=== PATIENT | male | born 2000 | race Caucasian/White ===

== ENCOUNTER 2025-02-03 18:10 | Inpatient (IN) | payer OTHER ==
[~2025-02-03] VITALS: Ht 172.7 cm; Wt 98.0 kg
[2025-02-03 18:43] LABS: COVID AG,FIA SOURCE NASAL SWAB
[2025-02-03 18:47] LABS: PLATELET COUNT (AUTO) 314 K/uL (150-450); RED BLOOD CELL COUNT(AUTO) 5.49 MIL/uL (4.50-5.90); RED CELL DISTRIBUTION WIDTH 12.9 % (11.5-14.5); WHITE BLOOD COUNT (AUTO) 9.6 K/uL (4.5-11.0)
[2025-02-03 18:50] LABS: CALCIUM, TOTAL 8.5 mg/dL (8.8-10.5); CREATININE 1.01 mg/dL (0.60-1.30); GLOMERULAR FILTR. RATE CALC > 60 mL/min (>60); GLUCOSE,RANDOM 114 mg/dL (70-110); SODIUM SERUM 139 mmol/L (136-145); UREA NITROGEN, BLOOD 14 mg/dL (7-18)
[2025-02-03 19:02] LABS: SARS-COV2 (COVID) ANTIGEN,FIA Negative (Negative)
[2025-02-03 20:43] LABS: APPEARANCE,URINE CLEAR (CLEAR); GLUCOSE, URINE (UA) NEGATIVE (NEGATIVE); LEUKOCYTE ESTERASE ,URINE NEGATIVE (NEGATIVE); NITRATE,URINE NEGATIVE (NEGATIVE); OCCULT BLOOD,URINE NEGATIVE (NEGATIVE); PH,URINE DRUG SCREEN 6.0 (5.0-8.0); SPECIFIC GRAVITIY, URINE 1.007 (1.003-1.030)
[2025-02-03 21:03] LABS: ALCOHOL, URINE DRUG SCREEN NEGATIVE (NEGATIVE); AMPHET/METH SCREEN,URINE NEGATIVE (NEGATIVE); BARBITURATE SCREEN, URINE NEGATIVE (NEGATIVE); CANNABINOID SCREEN,URINE POSITIVE (NEGATIVE); COCAINE SCREEN,URINE NEGATIVE (NEGATIVE); METHADONE SCREEN, URINE NEGATIVE (NEGATIVE)
[2025-02-03 22:38] VITALS: O2SAT 100
[2025-02-04 02:40] VITALS: BP 133/89; PULSE 85; RESP 18; TEMP 98.1; O2SAT 99
[2025-02-04] MEDS ORDERED: DOCUSATE SODIUM 100 MG CAPSULE PO PRN (08:30)
[2025-02-04] MEDS ORDERED: MAGNESIUM HYDROXIDE SUSPENSION 30 ML UDCUP PO PRN (08:30)
[2025-02-04] MEDS ORDERED: IBUPROFEN 600 MG TABLET PO PRN (08:30)
[2025-02-04] MEDS ORDERED: BACITRACIN 28 GM OINTMENT TP PRN (08:30)
[2025-02-04] MEDS ORDERED: ACETAMINOPHEN 325 MG TABLET PO PRN (08:30)
[2025-02-04] MEDS ORDERED: MAG HYDROX/ALUMINUM HYD/SIMETH ES 30 ML SUSPENSION UDCUP PO PRN (08:30)
[2025-02-04] MEDS ORDERED: OMEPRAZOLE 20 MG CAPSULE PO PRN (08:30)
[2025-02-04] MEDS ORDERED: PETROLATUM,WHITE 28 GM JELLY TP PRN (08:30)
[2025-02-04] MEDS ORDERED: ONDANSETRON 4 MG TABLET PO PRN (08:30)
[2025-02-04] MEDS ORDERED: BENZOCAINE/MENTHOL [CEPACOL] LOZENGE PO PRN (08:30)
[2025-02-04] MEDS ORDERED: ALBUTEROL SULFATE HFA 90 MCG/PUFF 8 GM INHALER IH PRN (08:30)
[2025-02-04] MEDS ORDERED: LOPERAMIDE HCL 2 MG CAPSULE PO PRN (08:30)
[2025-02-04 09:04] VITALS: BP 146/93; PULSE 71; RESP 18; TEMP 96.8; O2SAT 97
[2025-02-04] MEDS: BENZTROPINE MESYLATE 2 MG TABLET PO SCH (20:13)
[2025-02-04 21:02] VITALS: BP 160/110; PULSE 92; RESP 18; TEMP 98; O2SAT 97
[2025-02-05 13:00] VITALS: BP 136/93; PULSE 81; RESP 19; TEMP 97.9; O2SAT 97
[2025-02-05 20:31] VITALS: BP 136/96; PULSE 106; RESP 18; TEMP 98; O2SAT 97
[2025-02-06 08:30] VITALS: BP 127/86; PULSE 78; RESP 18; TEMP 97.5; O2SAT 99
[2025-02-06 21:55] VITALS: BP 122/84; PULSE 102; RESP 18; TEMP 97.9; O2SAT 98
[2025-02-06] MEDS: ZOLPIDEM TARTRATE 10 MG TABLET PO PRN (22:22)
[2025-02-07 08:53] VITALS: BP 134/87; PULSE 100; RESP 16; TEMP 98.2; O2SAT 99
[2025-02-07] MEDS ORDERED: BENZ2TAB84 PO (17:29)
[2025-02-07] MEDS ORDERED: RISP-31 PO (17:30)
== END 2025-02-07 18:15 | disposition home or self-care (01) | DRG 885 ==
LOC: EMS 18:10 → 3EI 02-04 00:51 → EMS 02-04 00:57
PROVIDERS: ADMIT Psychiatry & Neurology Psychiatry; ATTEND Psychiatry & Neurology Psychiatry
DX: F20.9 Schizophrenia, unspecified (principal); R45.851 Suicidal ideations; F41.9 Anxiety disorder, unspecified; G47.00 Insomnia, unspecified; I10 Essential (primary) hypertension; F32.9 Major depressive disorder, single episode, unspecified; F10.90 Alcohol use, unspecified, uncomplicated; Y90.9 Presence of alcohol in blood, level not specified; F12.90 Cannabis use, unspecified, uncomplicated; Z20.822 Contact with and (suspected) exposure to COVID-19
CPT/HCPCS: 80048; 80307; 81003; 85025; 99285; G0480